=== PATIENT | male | born 1965 | race Caucasian/White ===

== ENCOUNTER 2017-06-01 03:17 | Emergency (ER) | payer OTHER ==
[~2017-06-01] VITALS: Ht 177.8 cm; Wt 81.6 kg
[2017-06-01 03:53] VITALS: BP 116/79
[2017-06-01] MEDS ORDERED: CLOTRIMAZOLE15 GM TOPIC (03:56)
[2017-06-01 04:09] VITALS: BP 116/79
--- NOTE | 2017-06-04 21:52 | Emergency Room Report ---
History of Present Illness General Chief Complaint: Pain Source: Patient Present Illness HPI 51-year-old male presents ED for evaluation. Patient states he's got a rash to his feet times a week. Pain is dull, 8 out of 10, nonradiating. Patient states he may have a fungal infection. Also complaining of runny nose. Denies any cough or congestion. Denies any fevers or chills. Denies earache or sore throat. No other aggravating or relieving factors. Denies any other associated symptoms Allergies: Coded Allergies: No Known Allergies (Unverified , 06/01/17) Patient History Past Medical History: none Past Surgical History: none Pertinent Family History: none Social History: Denies: smoking, alcohol use, drug use Immunizations: UTD Reviewed Nursing Documentation: PMH: Agreed; PSxH: Agreed Nursing Documentation-PMH Past Medical History: No Stated History Review of Systems All Other Systems: negative except mentioned in HPI Physical Exam Vital Signs Date Time Temp Pulse Resp B/P (MAP) Pulse Ox O2 Delivery O2 Flow Rate FiO2 06/01/17 03:20 97.8 88 14 116/79 96 Room Air 97.9 Sp02 EP Interpretation: reviewed, normal General Appearance: no apparent distress, alert, GCS 15, non-toxic Head: normocephalic, atraumatic Eyes: bilateral eye normal inspection, bilateral eye PERRL ENT: hearing grossly normal, normal pharynx, no angioedema, normal voice Neck: full range of motion, supple/symm/no masses Respiratory: chest non-tender, lungs clear, normal breath sounds, speaking full sentences Cardiovascular #1: regular rate, rhythm, no edema Cardiovascular #2: 2+ carotid (R), 2+ carotid (L), 2+ radial (R), 2+ radial (L) , 2+ dorsalis pedis (R), 2+ dorsalis pedis (L) Gastrointestinal: normal bowel sounds, non tender, soft, non-distended, no guarding, no rebound Rectal: deferred Genitourinary: normal inspection, no CVA tenderness Musculoskeletal: back normal, gait/station normal, normal range of motion, non- tender Neurologic: alert, oriented x3, responsive, motor strength/tone normal, sensory intact, speech normal Psychiatric: judgement/insight normal, memory normal, mood/affect normal, no suicidal/homicidal ideation Reflexes: 3+ bicep (R), 3+ bicep (L), 3+ tricep (R), 3+ tricep (L), 3+ knee (R) , 3+ knee (L) Skin: rash - macerated skin between toes to sole of foot Lymphatic: no adenopathy Medical Decision Making Diagnostic Impression: Primary Impression: Fungal infection of foot Qualified Codes: B35.3 - Tinea pedis ER Course Hospital Course 51-year-old male presents to ED with rash to feet Differential diagnoses include: Cellulitis, dermatitis, insect bite, abscess Clinical course Patient placed on stretcher. After initial history, physical exam reveals a middle aged male in no acute distress. On exam this extensive macerated skin noted to the foot between the toes. Consistent with fungal infection Diagnosis - fungal infection of foot stable and discharged to home with prescription for clotrimazole. Instructed to followup with PMD. Instructed return to ED if symptoms recur or worsen Last Vital Signs Date Time Temp Pulse Resp B/P (MAP) Pulse Ox O2 Delivery O2 Flow Rate FiO2 06/01/17 04:09 97.8 88 14 116/79 96 Room Air Status: improved Disposition: HOME, SELF-CARE Condition: Stable Scripts Clotrimazole* (LOTRIMIN*) 15 Gm Cream..g. 1 APPLIC TOPIC TWICE A DAY, #15 GM Prov: Demetrio Cosby MD 06/01/17 Patient Instructions: Athlete's Foot, [id number] Demetrio Cosby MD Jun 04, 2017 21:52
== END 2017-06-01 04:09 | disposition home or self-care (01) ==
LOC: EMR 03:30
DX: B35.3 Tinea pedis (principal)
CPT/HCPCS: 99283